=== PATIENT | male | born 1985 | race Caucasian/White ===

== ENCOUNTER 2016-07-28 11:26 | Emergency (ER) | payer SELFPAY ==
--- NOTE | 2016-07-28 12:26 | RAD ---
Name: JAY ÁLVAREZ Exam: Left shoulder and left humerus Comparison: None Clinical history: Fall from bed. Left upper arm pain. Initial encounter. Findings: 3 radiographs of left shoulder and to regress of the left humerus are submitted. Bone density is within normal limits. Acromioclavicular and coracoclavicular joints are normal. Glenohumeral joint distance is normal and articular surfaces are smooth. There is a small defect superior laterally at the humeral head and near the greater tuberosity. Cortical fracture or prior dislocation could have this appearance. Subacromial space is maintained. There is no dislocation or suspicious soft tissue calcification. Limited views of the elbow show no abnormality. Visualized left lung is clear. Impression: 1. Small cortical defect near the greater tuberosity. This could reflect prior dislocation. Acute cortical injury is not excluded on this exam 2. No dislocation or suspicious soft tissue calcification
[2016-07-28] MEDS ORDERED: IBUPROFEN 600 MG TABLET ONE (12:41)
[2016-07-28] MEDS ORDERED: HYDROCODONE/ACETAMINOPHEN 5/325MG TABLET ONE (12:41)
== END 2016-07-28 13:06 | disposition home or self-care (01) ==
LOC: ED 11:26
DX: S46.012A Strain of muscle(s) and tendon(s) of the rotator cuff of left shoulder, initial encounter (principal); E11.9 Type 2 diabetes mellitus without complications; I10 Essential (primary) hypertension; W06.XXXA Fall from bed, initial encounter
CPT/HCPCS: 73060; 73030; 99283 ×2; A9270 ×2